=== PATIENT | male | born 1940 | race Caucasian/White ===

== ENCOUNTER 2017-06-15 07:55 | Day surgery (SDC) | payer MEDICARE ==
[2017-06-15 08:54] VITALS: BMI 32.3
[2017-06-15] MEDS ORDERED: Propofol 10 mg/ml Inj (20 ML) ONE ×2 (10:48→11:09)
[2017-06-15 11:32] VITALS: TEMP 97.3
[2017-06-15 12:17] VITALS: BP 115/61; PULSE 63; RESP 16; O2SAT 98
== END 2017-06-15 12:13 | disposition home or self-care (01) ==
LOC: C.ENDO 07:55
PROVIDERS: ATTEND Internal Medicine Gastroenterology
DX: K29.50 Unspecified chronic gastritis without bleeding (principal); K64.8 Other hemorrhoids